=== PATIENT | female | born 1960 | race American Indian/Alaskan Native ===

== ENCOUNTER 2019-03-03 20:25 | Inpatient (IN) | payer MEDICAID ==
--- NOTE | 2019-03-03 20:37 | Emergency Department Report ---
Blank Doc - Documentation Documentation: 58-year-old female that presents with flank pain, pelvic pain, and dysuria. This initial assessment/diagnostic orders/clinical plan/treatment(s) is/are subject to change based on patient's health status, clinical progression and re- assessment by fellow clinical providers in the ED. Further treatment and workup at subsequent clinical providers discretion. Patient/guardians urged not to elope from the ED as their condition may be serious if not clinically assessed and managed. Initial orders include: 1- Patient sent to [facility] for further evaluation and treatment 2- UA 3- labs
[2019-03-03 21:21] LABS: Alanine Aminotransferase 91 units/L (7-56); Albumin 3.6 g/dL (3.9-5); BUN/Creatinine Ratio 34; Blood Urea Nitrogen 17 mg/dL (7-17); Calcium 9.6 mg/dL (8.4-10.2); Hemolysis Index 43
[2019-03-03 21:23] LABS: Basophils # (Auto) 0.1 K/mm3 (0.0-0.1); Basophils % (Auto) 1.1 % (0.0-1.8); Eosinophils # (Auto) 0.2 K/mm3 (0.0-0.4); Eosinophils % (Auto) 2.5 % (0.0-4.3); Hematocrit 37.2 % (30.3-42.9); Hemoglobin 11.8 gm/dl (10.1-14.3); Lymphocytes # (Auto) 1.9 K/mm3 (1.2-5.4); Mean Corpuscular HGB Conc 32 % (30-34); Mean Corpuscular Volume 84 fl (79-97); Monocytes # (Auto) 0.7 K/mm3 (0.0-0.8); Monocytes % (Auto) 7.6 % (0.0-7.3); Platelet Count 382 K/mm3 (140-440); Red Blood Count 4.42 M/mm3 (3.65-5.03); Red Cell Distribution Width 16.4 % (13.2-15.2)
[2019-03-03 21:24] LABS: Bacteria,Urine 1+ /HPF (Negative); Bilirubin,Urine NEG (Negative); Blood,Urine LG (Negative); Color,Urine Amber (Yellow)
[2019-03-03] MEDS ORDERED: ONDANSETRON 4 MG/2 ML INJ IV ONE (21:31)
[2019-03-03] MEDS ORDERED: MORPHINE 4 MG/1 ML INJ IV ONE (21:31)
[2019-03-03] MEDS ORDERED: SODIUM CHLORIDE 0.9% 1000 ML 1,000 ML IV ONE (21:31)
[2019-03-03 21:33] LABS: RBC,Urine > 182.0 /HPF (0.0-6.0); WBC,Urine > 182.0 /HPF (0.0-6.0)
[2019-03-03] MEDS ORDERED: cefTRIAXone/NS 1 GM/50 ML 1 GM/50 ML BAG IV ONE (21:45)
--- NOTE | 2019-03-03 22:10 | Emergency Department Report ---
ED General Adult HPI - General Chief complaint: Abdominal Pain Stated complaint: ABD/BACK PAIN/R SIDE CP Time Seen by Provider: 03/03/19 20:36 Source: patient Mode of arrival: Ambulatory Limitations: No Limitations - History of Present Illness Initial comments: Patient is a 58-year-old female who presents emergency room with complaints of lower abdominal pain and lower back pain that began earlier this week. Patient states that 3 weeks ago she had similar symptoms and was diagnosed with a UTI and took a week of antibiotics but does not know what she took. Patient states that her symptoms completely resolved but then returned again. She has asso ciated dysuria, chills, urinary frequency, urinary urgency, nausea. She denies any vomiting or diarrhea. She has not taken her temperature. She states she has a past medical history of cervical cancer and depression. She denies any allergies medications. - Related Data Previous Rx's Medication Instructions Recorded Last Taken Type Amoxicillin [Trimox CAP] 500 mg PO Q8H #30 capsule 02/27/14 Unknown Rx Naproxen [Naprosyn TAB] 500 mg PO BID PRN #30 tablet 09/05/15 Unknown Rx methOCARBAMOL [Robaxin TAB] 500 mg PO BID PRN #20 tab 09/05/15 Unknown Rx traMADoL [Ultram 50 MG tab] 50 mg PO BID PRN #14 tablet 12/23/15 Unknown Rx Allergies Allergy/AdvReac Type Severity Reaction Status Date / Time No Known Allergies Allergy Verified 02/27/14 15:35 ED Review of Systems ROS: Stated complaint: ABD/BACK PAIN/R SIDE CP Other details as noted in HPI Comment: All other systems reviewed and negative ED Past Medical Hx - Past Medical History Previous Medical History?: Yes Hx Hypertension: Yes Hx GERD: Yes Hx of Cancer: Yes (Cervical) - Surgical History Past Surgical History?: Yes Additional Surgical History: L. hand repair - Social History Smoking Status: Never Smoker Substance Use Type: None - Medications Home Medications: Home Medications Medication Instructions Recorded Confirmed Last Taken Type Amoxicillin [Trimox CAP] 500 mg PO Q8H #30 capsule 02/27/14 Unknown Rx Naproxen [Naprosyn TAB] 500 mg PO BID PRN #30 tablet 09/05/15 Unknown Rx methOCARBAMOL [Robaxin TAB] 500 mg PO BID PRN #20 tab 09/05/15 Unknown Rx traMADoL [Ultram 50 MG tab] 50 mg PO BID PRN #14 tablet 12/23/15 Unknown Rx ED Physical Exam - General Limitations: No Limitations General appearance: alert, in no apparent distress - Head Head exam: Present: atraumatic - Eye Eye exam: Present: scleral icterus - ENT ENT exam: Present: mucous membranes moist - Respiratory Respiratory exam: Present: normal lung sounds bilaterally. Absent: respiratory distress, wheezes, rales, rhonchi, stridor, chest wall tenderness, accessory muscle use, decreased breath sounds, prolonged expiratory - Cardiovascular Cardiovascular Exam: Present: normal rhythm, tachycardia, normal heart sounds. Absent: systolic murmur, diastolic murmur, rubs, gallop - GI/Abdominal GI/Abdominal exam: Present: soft, tenderness (generalized lower abdomen), normal bowel sounds. Absent: distended, guarding, rebound, rigid - Back Exam Back exam: Present: CVA tenderness (R) - Neurological Exam Neurological exam: Present: alert, oriented X3 - Psychiatric Psychiatric exam: Present: normal affect, normal mood - Skin Skin exam: Present: warm, dry, intact ED Course Vital Signs 03/03/19 03/03/19 03/03/19 20:31 20:40 21:24 Temperature 98.6 F 98.6 F Pulse Rate 113 H 113 H Respiratory 18 18 16 Rate Blood Pressure 127/87 127/87 O2 Sat by Pulse 99 97 Oximetry - Consultations Consultation #1: 03/03/19 11:[address] Choudhary, general surgery discussed pt and CT findings advised to consult GI 03/03/19 11:[address] Patel, GI discussed pt and CT findings and labs, advised to keep NPO, will evaluate pt in the morning for possible ERCP, no abx recommended at this time. 03/04/19 12:[address] Farley, hospitalist regarding pt and results, will admit pt to the hospital, will accept and resume care of patient ED Medical Decision Making - Lab Data Result diagrams: 03/03/19 20:54 03/03/19 20:54 - Radiology Data Radiology results: report reviewed CT abdomen pelvis w con INDICATION: lower abd pain, right flank pain. TECHNIQUE: All CT scans at this location are performed using the following dose modulation technique: Automated exposure control. CONTRAST: Omnipaque 300, 100 cc IV injection. COMPARISON: None available. CT ABDOMEN: Evaluation of the parenchymal organs demonstrates a low-density hepatic mass anterior to the portal bifurcation within the right lobe (series 2, image 38) measuring 2.5 cm. There is associated moderate biliary dilatation. A few small renal cysts appear benign. The remaining parenchymal organs are unremarkable. The gallbladder is contracted. The bowel is not dilated or thickened. Noninflamed diverticula are greatest at the sigmoid colon. Partially necrotic retroperitoneal adenopathy is present. A loan representative node at the left periaortic region at the level of the left renal hilum (series 2, image 67) measures 2.[address] PELVIS: Dilatation of the endometrial canal. An underlying heterogeneous mass in the region of the cervix (series 2, image 134) measures 5.7 cm. There is involvement of the superior aspect of the bladder and the left adnexa/ovary. The left ovary contains a cystic component and 1.5 cm soft tissue nodule. 2 soft tissue nodules are seen in the midline anteriorly at the level of the upper pelvis (series 2, image 1:15). The largest measures 1.6 cm. IMPRESSION: 1. CHECK VIEWER malignancy is likely cervical in origin with involvement of the left ovary. Metastatic disease is seen to the anterior pelvis and retroperitoneal nodes. 2. 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 Signer Name: Dirk Duarte MD Signed: 03/03/2019 10:51 PM Workstation Name: [id number] Transcribed By: ES Dictated By: Dirk Duarte MD Electronically Authenticated By: Dirk Duarte MD Signed Date/Time: 03/03/192250 DD/ 40 - Medical Decision Making Patient is a 58-year-old female who presents emergency room with complaints of lower abdominal pain and lower back pain that began earlier this week. Patient states that 3 weeks ago she had similar symptoms and was diagnosed with a UTI and took a week of antibiotics but does not know what she took. Patient states that her symptoms completely resolved but then returned again. She has associated dysuria, chills, urinary frequency, urinary urgency, nausea. She denies any vomiting or diarrhea. She has not taken her temperature. She states she has a past medical history of cervical cancer and depression. She denies any allergies medications. pt states that she was diagnosed with cervical cancer in 2017 but states "she did not have surgery or undergo chemo/radiation and that it went away and she was being observed." vitals with tachycardia, otherwise normal. CBC is stable, no leukocytosis. CMP with elevated liver enzymes. on exam: scleral icterus, generalized lower abd TTP. UA shows many WBCs, many RBCs, moderate leukocyte esterase. pt given 1g ceftriaxone for UTI. CT abd pelvis: 1. CHECK VIEWER malignancy is likely cervical in origin with involvement of the left ovary. Metastatic disease is seen to the anterior pelvis and retroperitoneal nodes. 2. 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 spoke with Dr. Patel, GI discussed pt and CT findings and labs, advised to keep NPO, will evaluate pt in the morning for possible ERCP, no abx recommended at this time. Spoke with Dr. Farley, hospitalist regarding pt and results, will admit pt to the hospital, will accept and resume care of patient. pt made NPO, pt admitted to the hospital. - Differential Diagnosis UTI, pyelonephritis, colitis, cancer, appendicitis Critical care attestation.: If time is entered above; I have spent that time in minutes in the direct care of this critically ill patient, excluding procedure time. ED Disposition Clinical Impression: Metastatic disease, Bile duct obstruction, Cholangiocarcinoma, Elevated alkaline phosphatase level, Elevated LFTs Cervical malignancy Qualifiers: Malignant neoplasm of cervix location: unspecified location Qualified Code(s): C53.9 - Malignant neoplasm of cervix uteri, unspecified UTI (urinary tract infection) Qualifiers: Urinary tract infection type: acute cystitis Hematuria presence: with hematuria Qualified Code(s): N30.01 - Acute cystitis with hematuria Disposition: OP ADMIT IP TO THIS HOSP Is pt being admited?: Yes Does the pt Need Aspirin: No Condition: Stable
[2019-03-03 22:19] LABS: Hepatitis B Surface Antigen Non-Reactive (Negative); Hepatitis C Virus Antibody Non-Reactive (NonReactive)
--- NOTE | 2019-03-03 22:55 | Cat Scan Report ---
CT abdomen pelvis w con INDICATION: lower abd pain, right flank pain. TECHNIQUE: All CT scans at this location are performed using the following dose modulation technique: Automated exposure control. CONTRAST: Omnipaque 300, 100 cc IV injection. COMPARISON: None available. CT ABDOMEN: Evaluation of the parenchymal organs demonstrates a low-density hepatic mass anterior to the portal bifurcation within the right lobe (series 2, image 38) measuring 2.5 cm. There is associat ed moderate biliary dilatation. A few small renal cysts appear benign. The remaining parenchymal orga ns are unremarkable. The gallbladder is contracted. The bowel is not dilated or thickened. Noninflamed diverticula are greatest at the sigmoid colon. Par tially necrotic retroperitoneal adenopathy is present. A statement services representative node at the left periaortic r egion at the level of the left renal hilum (series 2, image 67) measures 2.[address] PELVIS: Dilatation of the endometrial canal. An underlying heterogeneous mass in the region of the cervix (series 2, image 134) measures 5.7 cm. There is involvement of the superior aspect of the sabrina dder and the left adnexa/ovary. The left ovary contains a cystic component and 1.5 cm soft tissue nod ule. 2 soft tissue nodules are seen in the midline anteriorly at the level of the upper pelvis (serie s 2, image 1:15). The largest measures 1.6 cm. IMPRESSION: 1. TEA TREE F[employer]ER malignancy is likely cervical in origin with involvement of the left ovary. Metastatic disease is seen to the anterior pelvis and retroperitoneal nodes. 2. 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 Signer Name: Dirk Duarte MD Signed: 03/03/2019 10:51 PM Workstation Name: [id number]
[2019-03-03] MEDS ORDERED: HYDROmorphone 1 MG/1 ML INJ IV ONE (23:12)
[2019-03-04] MEDS ORDERED: ONDANSETRON 4 MG/2 ML INJ IV PRN (00:59)
--- NOTE | 2019-03-04 02:12 | History and Physical Report ---
History of Present Illness Date of examination: 03/04/19 Date of admission: 03/04/19 00:59 Chief complaint: Back pain Lower abdominal pain History of present illness: 58-year-old -[place] female presenting to the emergency room today complaining of lower abdominal pain and back pain over the past one week. She was diagnosed with a urinary tract infection about 3 weeks ago and she indicates that she took antibiotics she indicates that she has been having dysuria and urinary frequency lately. She denies any fever but she has been having some chills and also had some nausea. She has known history of cervical cancer diagnosed in 2017 and has had radiation chemotherapy in the past. He has also noticed some yellowness of her eyes lately. She has also been more constipated lately. Work-up in the emergency room today including CT of the abdomen reveals 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. Is also gynecological malignancy which is likely cervical in origin with involvement of the left ovary, there is also metastatic disease seen to the anterior pelvis and retroperitoneal nodes. Gastroenterologists has been consulted regarding the abnormal liver function test and biliary ductal obstruction. Patient will be kept n.p.o. for further evaluation in the a.m. She is also started on empiric IV antibiotics for UTI Past History Past Medical History: GERD, hypertension Past Surgical History: Other (Left hand surgery) Social history: smoking (Smokes tobacco occasionally) Family history: cancer, diabetes Medications and Allergies Allergies Allergy/AdvReac Type Severity Reaction Status Date / Time No Known Allergies Allergy Verified 02/27/14 15:35 Home Medications Medication Instructions Recorded Confirmed Last Taken Type Amoxicillin [Trimox CAP] 500 mg PO Q8H #30 capsule 02/27/14 Unknown Rx Naproxen [Naprosyn TAB] 500 mg PO BID PRN #30 tablet 09/05/15 Unknown Rx methOCARBAMOL [Robaxin TAB] 500 mg PO BID PRN #20 tab 09/05/15 Unknown Rx traMADoL [Ultram 50 MG tab] 50 mg PO BID PRN #14 tablet 12/23/15 Unknown Rx Active Meds: Active Medications Acetaminophen (Tylenol) 650 mg PO Q4H PRN PRN Reason: Pain MILD(1-3)/Fever >100.5/MAST Sodium Chloride (Nacl 0.9% 1000 Ml) 1,000 mls @ 125 mls/hr IV DIRECT MATHEUS Ceftriaxone Sodium (Rocephin/Ns 1 Gm/50 Ml) 1 gm in 50 mls @ 100 mls/hr IV Q24HR MATHEUS; Protocol Morphine Sulfate (Morphine) 2 mg IV Q4H PRN PRN Reason: Pain, Moderate (4-6) Ondansetron HCl (Zofran) 4 mg IV Q8H PRN PRN Reason: Nausea And Vomiting Sodium Chloride (Sodium Chloride Flush Syringe 10 Ml) 10 ml IV BID MATHEUS Sodium Chloride (Sodium Chloride Flush Syringe 10 Ml) 10 ml IV PRN PRN PRN Reason: LINE FLUSH Review of Systems Gastrointestinal: abdominal pain Musculoskeletal: low back pain Exam - Constitutional Vitals: Temp Pulse Resp BP Pulse Ox 98.0 F 88 18 120/75 100 03/04/19 02:03 03/04/19 02:03 03/04/19 02:03 03/04/19 02:03 03/04/19 02:03 General appearance: Present: no acute distress, mild distress - EENT Eyes: Present: PERRL, EOM intact ENT: hearing intact, clear oral mucosa, dentition normal - Neck Neck: Present: supple, normal ROM - Respiratory Respiratory effort: normal Respiratory: bilateral: CTA - Cardiovascular Rhythm: regular Heart Sounds: Present: S1 & S2, gallop - Extremities Extremities: no ischemia, pulses intact, pulses symmetrical, No edema, Full ROM Peripheral Pulses: within normal limits - Abdominal General gastrointestinal: Present: soft, tender (Mild tenderness in the suprapubic region), distended Localized gastrointestinal: tender: suprapubic - Integumentary Integumentary: Present: clear, warm, dry, jaundice - Musculoskeletal Musculoskeletal: strength equal bilaterally - Psychiatric Psychiatric: appropriate mood/affect, intact judgment & insight, cooperative - Neurologic Neurologic: CNII-XII intact, moves all extremities Results - Labs CBC & Chem 7: 03/03/19 20:54 03/03/19 20:54 Labs: Abnormal lab results 03/03/19 03/03/19 03/03/19 Range/Units 20:54 20:54 20:54 MCH 27 L (28-32) pg RDW 16.4 H (13.2-15.2) % [place] % (Auto) 7.6 H (0.0-7.3) % Sodium 135 L (137-145) mmol/L Carbon Dioxide 20 L (22-30) mmol/L Creatinine 0.5 L (0.7-1.2) mg/dL Glucose 171 H (65-100) mg/dL Total Bilirubin 4.70 H (0.1-1.2) mg/dL AST 75 H (5-40) units/L ALT 91 H (7-56) units/L Alkaline Phosphatase 1034 H (35-129) units/L Total Protein 8.4 H (6.3-8.2) g/dL Albumin 3.6 L (3.9-5) g/dL Urine WBC (Auto) > 182.0 H (0.0-6.0) /HPF Assessment and Plan - Patient Problems (1) Bile duct obstruction Current Visit: Yes Status: Acute Plan to address problem: Secondary to metastatic disease. We await further evaluation and recommendation from [facility]. (2) Cholangiocarcinoma Current Visit: Yes Status: Acute Plan to address problem: Patient also has ductal obstruction. Will await further evaluation by [facility]. (3) Elevated LFTs Current Visit: Yes Status: Acute Plan to address problem: We will monitor LFTs. (4) Cervical malignancy Current Visit: Yes Status: Acute Qualifiers: Malignant neoplasm of cervix location: unspecified location Qualified Code(s): C53.9 - Malignant neoplasm of cervix uteri, unspecified Plan to address problem: Patient has had chemotherapy and radiation in the past. Follows up with her private physician. (5) UTI (urinary tract infection) Current Visit: Yes Status: Acute Qualifiers: Urinary tract infection type: acute cystitis Hematuria presence: with hematuria Qualified Code(s): N30.01 - Acute cystitis with hematuria Plan to address problem: She is placed on empiric IV antibiotics. (6) DVT prophylaxis Current Visit: Yes Status: Acute Plan to address problem: Patient meanwhile placed on sequential compression device as patient may be may be going for some surgical procedures this a.m. (7) Full code status Current Visit: Yes Status: Acute
[2019-03-04] MEDS ORDERED: HYDROmorphone 1 MG/1 ML INJ IV ONE (03:30)
[2019-03-04] MEDS: SODIUM CHLORIDE 0.9% 1000 ML 1,000 ML IV SCH ×2 (03:33→11:21)
[2019-03-04] MEDS: MORPHINE 2 MG/1 ML INJ IV PRN ×3 (08:50→18:56)
[2019-03-04] MEDS: cefTRIAXone/NS 1 GM/50 ML 1 GM/50 ML BAG IV SCH (11:11)
--- NOTE | 2019-03-04 12:09 | Gastroenterology Consultation ---
<VALERIA SHEFFIELD - Last Filed: 03/04/19 12:22> History of Present Illness - Reason for Consult Consult date: 03/04/19 cholangiocarcinoma Requesting physician: KATIUSKA GILL - History of Present Illness Patient is a 58 y/o female with PMH of HTN, GERD, and cervical cancer (dx 2017; s/p chemo/radiation) who presented to ED with c/o lower abdominal pain, back pain, and dysuria. 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 This morning patient was resting in bed w/o acute distress. Reports continued lower abdominal pain and admits to jaundice x ~2 days. Unclear if there has been wt loss. Denies CP, SOB, N/V, or signs of bleeding. No hx of ETOH abuse, IV drug use, or liver disease. Past History Past Medical History: GERD, hypertension, other (cervical cancer) Past Surgical History: Other (Left hand surgery) Social history: smoking (Smokes tobacco occasionally) Family history: cancer, diabetes Medications and Allergies Allergies Allergy/AdvReac Type Severity Reaction Status Date / Time No Known Allergies Allergy Verified 02/27/14 15:35 Home Medications Medication Instructions Recorded Confirmed Last Taken Type methOCARBAMOL [Robaxin TAB] 500 mg PO BID PRN #20 tab 09/05/15 03/04/19 Unknown Rx Percocet 10/325 mg 10 mg PO Q12HR 03/04/19 03/04/19 1 Day Ago History ~03/03/19 10/325 Active Meds: Active Medications Acetaminophen (Tylenol) 650 mg PO Q4H PRN PRN Reason: Pain MILD(1-3)/Fever >100.5/MAST Sodium Chloride (Nacl 0.9% 1000 Ml) 1,000 mls @ 125 mls/hr IV DIRECT MATHEUS Last Admin: 03/04/19 11:21 Dose: 125 mls/hr Documented by: Ceftriaxone Sodium (Rocephin/Ns 1 Gm/50 Ml) 1 gm in 50 mls @ 100 mls/hr IV Q24HR [facility]; Protocol Last Admin: 03/04/19 11:11 Dose: 100 mls/hr Documented by: Morphine Sulfate (Morphine) 2 mg IV Q4H PRN PRN Reason: Pain, Moderate (4-6) Last Admin: 03/04/19 08:50 Dose: 2 mg Documented by: Ondansetron HCl (Zofran) 4 mg IV Q8H PRN PRN Reason: Nausea And Vomiting Sodium Chloride (Sodium Chloride Flush Syringe 10 Ml) 10 ml IV BID [facility]US Last Admin: 03/04/19 11:11 Dose: Not Given Documented by: Sodium Chloride (Sodium Chloride Flush Syringe 10 Ml) 10 ml IV PRN PRN PRN Reason: LINE FLUSH medications reviewed/updated as required Review of Systems - Review of Systems All systems: negative Gastrointestinal: abdominal pain, jaundice Exam - Constitutional Vital Signs: Temp Pulse Resp BP Pulse Ox 99.3 F 95 H 18 115/71 97 03/04/19 12:00 03/04/19 12:00 03/04/19 12:00 03/04/19 12:00 03/04/19 12:00 General appearance: no acute distress - EENT Eyes: PERRL, EOM intact, scleral icterus - Respiratory Respiratory effort: normal - Cardiovascular Rhythm: regular - Gastrointestinal General gastrointestinal: Present: soft, tender (slight TTP in lower abdomen), non-distended, hypoactive bowel sounds - Integumentary Integumentary: Present: warm - Neurologic Neurological: alert and oriented x3 - Labs CBC & Chem 7: 03/03/19 20:54 03/03/19 20:54 Lab Results: Laboratory Results - last 24 hr 03/03/19 03/03/19 03/03/19 20:54 20:54 20:54 WBC 9.4 RBC 4.42 Hgb 11.8 Hct 37.2 MCV 84 MCH 27 L MCHC 32 RDW 16.4 H Plt Count 382 Lymph % (Auto) 20.0 [place] % (Auto) 7.6 H Eos % (Auto) 2.5 Baso % (Auto) 1.1 Lymph # 1.9 [place] # 0.7 Eos # 0.2 Baso # 0.1 Seg Neutrophils % 68.8 Seg Neutrophils # 6.5 Sodium 135 L Potassium 4.3 Chloride 99.9 Carbon Dioxide 20 L Anion Gap 19 BUN 17 Creatinine 0.5 L Estimated GFR > 60 BUN/Creatinine Ratio 34 Glucose 171 H Calcium 9.6 Total Bilirubin 4.70 H AST 75 H ALT 91 H Alkaline Phosphatase 1034 H Total Protein 8.4 H Albumin 3.6 L Albumin/Globulin Ratio 0.8 Urine Color [place] Urine Turbidity Cloudy Urine pH 5.0 Ur Specific [place] 1.015 Urine Protein 30 mg/dl Urine Glucose (UA) Neg Urine Ketones Neg Urine Blood Lg Urine Nitrite Neg Urine Bilirubin Neg Urine Urobilinogen 4.0 Ur Leukocyte Esterase Mod Urine WBC (Auto) > 182.0 H Urine RBC (Auto) > 182.0 U Epithel Cells (Auto) 3.0 Urine Bacteria (Auto) 1+ Hepatitis A IgM Ab Hep Bs Antigen Hep B Core IgM Ab Hepatitis C Antibody 03/03/19 21:34 WBC RBC Hgb Hct MCV MCH MCHC RDW Plt Count Lymph % (Auto) [place] % (Auto) Eos % (Auto) Baso % (Auto) Lymph # [place] # Eos # Baso # Seg Neutrophils % Seg Neutrophils # Sodium Potassium Chloride Carbon Dioxide Anion Gap BUN Creatinine Estimated GFR BUN/Creatinine Ratio Glucose Calcium Total Bilirubin AST ALT Alkaline Phosphatase Total Protein Albumin Albumin/Globulin Ratio Urine Color Urine Turbidity Urine pH Ur Specific [place] Urine Protein Urine Glucose (UA) Urine Ketones Urine Blood Urine Nitrite Urine Bilirubin Urine Urobilinogen Ur Leukocyte Esterase Urine WBC (Auto) Urine RBC (Auto) U Epithel Cells (Auto) Urine Bacteria (Auto) Hepatitis A IgM Ab Non-reactive Hep Bs Antigen Non-reactive Hep B Core IgM Ab Non-reactive Hepatitis C Antibody Non-reactive Assessment and Plan 1.elevated LFTs 2.abnormal CT (cholangiocarcinoma?) 4.cervical malignancy 5.UTI -temp 98 -WBC WNL -LFTs- T.elisa 4.70, AST 75, ALT 91, alk phos 1034 -abd CT showed [employer] malignancy likely cervical in origin with metastatic disease, along with 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 -will order tumor markers and MRI for further evaluation -consider ERCP (stent placement) based on above -okay for diet as tolerated today after MRI then NPO after MN -continue antibiotics -oncology consult -continue to trend labs (INR in am) and supportive care -further recommendations to follow <MADELIN LOVETT - Last Filed: 03/04/19 19:52> Medications and Allergies Active Meds: Active Medications Acetaminophen (Tylenol) 650 mg PO Q4H PRN PRN Reason: Pain MILD(1-3)/Fever >100.5/MAST Sodium Chloride (Nacl 0.9% 1000 Ml) 1,000 mls @ 125 mls/hr IV DIRECT MATHEUS Last Admin: 03/04/19 11:21 Dose: 125 mls/hr Documented by: Ceftriaxone Sodium (Rocephin/Ns 1 Gm/50 Ml) 1 gm in 50 mls @ 100 mls/hr IV Q2 4HR [facility]; Protocol Last Admin: 03/04/19 11:11 Dose: 100 mls/hr Documented by: Morphine Sulfate (Morphine) 2 mg IV Q4H PRN PRN Reason: Pain, Moderate (4-6) Last Admin: 03/04/19 18:56 Dose: 2 mg Documented by: Ondansetron HCl (Zofran) 4 mg IV Q8H PRN PRN Reason: Nausea And Vomiting Sodium Chloride (Sodium Chloride Flush Syringe 10 Ml) 10 ml IV BID [facility] Last Admin: 03/04/19 11:11 Dose: Not Given Documented by: Sodium Chloride (Sodium Chloride Flush Syringe 10 Ml) 10 ml IV PRN PRN PRN Reason: LINE FLUSH Exam - Constitutional Vital Signs: Temp Pulse Resp BP Pulse Ox 99.3 F 95 H 18 115/71 97 03/04/19 12:00 03/04/19 12:00 03/04/19 12:00 03/04/19 12:00 03/04/19 12:00 - Labs CBC & Chem 7: 03/03/19 20:54 03/03/19 20:54 Lab Results: Laboratory Results - last 24 hr 03/03/19 03/03/19 03/03/19 20:54 20:54 20:54 WBC 9.4 RBC 4.42 Hgb 11.8 Hct 37.2 MCV 84 MCH 27 L MCHC 32 RDW 16.4 H Plt Count 382 Lymph % (Auto) 20.0 [place] % (Auto) 7.6 H Eos % (Auto) 2.5 Baso % (Auto) 1.1 Lymph # 1.9 [place] # 0.7 Eos # 0.2 Baso # 0.1 Seg Neutrophils % 68.8 Seg Neutrophils # 6.5 Sodium 135 L Potassium 4.3 Chloride 99.9 Carbon Dioxide 20 L Anion Gap 19 BUN 17 Creatinine 0.5 L Estimated GFR > 60 BUN/Creatinine Ratio 34 Glucose 171 H Calcium 9.6 Total Bilirubin 4.70 H AST 75 H ALT 91 H Alkaline Phosphatase 1034 H Total Protein 8.4 H Albumin 3.6 L Albumin/Globulin Ratio 0.8 Urine Color [place] Urine Turbidity Cloudy Urine pH 5.0 Ur Specific [place] 1.015 Urine Protein 30 mg/dl Urine Glucose (UA) Neg Urine Ketones Neg Urine Blood Lg Urine Nitrite Neg Urine Bilirubin Neg Urine Urobilinogen 4.0 Ur Leukocyte Esterase Mod Urine WBC (Auto) > 182.0 H Urine RBC (Auto) > 182.0 U Epithel Cells (Auto) 3.0 Urine Bacteria (Auto) 1+ Hepatitis A IgM Ab Hep Bs Antigen Hep B Core IgM Ab Hepatitis C Antibody 03/03/19 21:34 WBC RBC Hgb Hct MCV MCH MCHC RDW Plt Count Lymph % (Auto) [place] % (Auto) Eos % (Auto) Baso % (Auto) Lymph # [place] # Eos # Baso # Seg Neutrophils % Seg Neutrophils # Sodium Potassium Chloride Carbon Dioxide Anion Gap BUN Creatinine Estimated GFR BUN/Creatinine Ratio Glucose Calcium Total Bilirubin AST ALT Alkaline Phosphatase Total Protein Albumin Albumin/Globulin Ratio Urine Color Urine Turbidity Urine pH Ur Specific [place] Urine Protein Urine Glucose (UA) Urine Ketones Urine Blood Urine Nitrite Urine Bilirubin Urine Urobilinogen Ur Leukocyte Esterase Urine WBC (Auto) Urine RBC (Auto) U Epithel Cells (Auto) Urine Bacteria (Auto) Hepatitis A IgM Ab Non-reactive Hep Bs Antigen Non-reactive Hep B Core IgM Ab Non-reactive Hepatitis C Antibody Non-reactive Assessment and Plan Patient seen and examined. Agree with note above. Obstructive jaundice from suspected neoplasm (cholangicarinoma vs metastatic disease). No signs of cholangitis. Recommend oncology consult. Will likely need ercp with stent placement, will f/u regarding timing for procedure
--- NOTE | 2019-03-04 16:15 | Consultation ---
History of Present Illness Consult date: 03/04/19 Reason for consult: other (Findings on CT scan. Patient is a 58 y/o female with PMH of HTN, GERD, and cervical cancer (dx 2017; s/p chemo/radiation) who presented to ED with c/o lower abdominal pain, back pain, and dysuria. 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 This morning patient was resting in bed w/o acute distress. Reports continued lower abdominal pain and admits to jaundice x ~2 days. Unclear if there has been wt loss. Denies CP, SOB, N/V, or signs of bleeding. No hx of ETOH abuse, IV drug use, or liver disease. 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 Medications and Allergies Allergies Allergy/AdvReac Type Severity Reaction Status Date / Time No Known Allergies Allergy Verified 02/27/14 15:35 Home Medications Medication Instructions Recorded Confirmed Last Taken Type methOCARBAMOL [Robaxin TAB] 500 mg PO BID PRN #20 tab 09/05/15 03/04/19 Unknown Rx Percocet 10/325 mg 10 mg PO Q12HR 03/04/19 03/04/19 1 Day Ago History ~03/03/19 10/325 Active Meds: Active Medications Acetaminophen (Tylenol) 650 mg PO Q4H PRN PRN Reason: Pain MILD(1-3)/Fever >100.5/MAST Sodium Chloride (Nacl 0.9% 1000 Ml) 1,000 mls @ 125 mls/hr IV DIRECT MATHEUS Last Admin: 03/04/19 11:21 Dose: 125 mls/hr Documented by: Ceftriaxone Sodium (Rocephin/Ns 1 Gm/50 Ml) 1 gm in 50 mls @ 100 mls/hr IV Q24HR [facility]; Protocol Last Admin: 03/04/19 11:11 Dose: 100 mls/hr Documented by: Morphine Sulfate (Morphine) 2 mg IV Q4H PRN PRN Reason: Pain, Moderate (4-6) Last Admin: 03/04/19 15:04 Dose: 2 mg Documented by: Ondansetron HCl (Zofran) 4 mg IV Q8H PRN PRN Reason: Nausea And Vomiting Sodium Chloride (Sodium Chloride Flush Syringe 10 Ml) 10 ml IV BID [facility]HEUS Last Admin: 03/04/19 11:11 Dose: Not Given Documented by: Sodium Chloride (Sodium Chloride Flush Syringe 10 Ml) 10 ml IV PRN PRN PRN Reason: LINE FLUSH Review of Systems Constitutional: other (patient was asking for food.) Respiratory: no cough, no shortness of breath, no dyspnea on exertion Genitourinary: dysuria, no vaginal bleeding, no vaginal discharge, no leakage of fluid, no pelvic pain - Vital Signs Vital signs: Vital Signs Temp Pulse Resp BP Pulse Ox 98.6 F 113 H 18 127/87 99 03/03/19 20:31 03/03/19 20:31 03/03/19 20:31 03/03/19 20:31 03/03/19 20:31 Temp Pulse Resp BP Pulse Ox 99.3 F 95 H 18 115/71 97 03/04/19 12:00 03/04/19 12:00 03/04/19 12:00 03/04/19 12:00 03/04/19 12:00 - Physical Exam Breasts: Positive: deferred Lungs: Positive: Normal air movement Abdomen: Positive: soft Genitourinary (Female): Positive: other (Patient denied any lower genital problems. Exam was deferred.) Results Result Diagrams: 03/03/19 20:54 03/03/19 20:54 Abnormal lab results 03/03/19 03/03/19 03/03/19 Range/Units 20:54 20:54 20:54 MCH 27 L (28-32) pg RDW 16.4 H (13.2-15.2) % [place] % (Auto) 7.6 H (0.0-7.3) % Sodium 135 L (137-145) mmol/L Carbon Dioxide 20 L (22-30) mmol/L Creatinine 0.5 L (0.7-1.2) mg/dL Glucose 171 H (65-100) mg/dL Total Bilirubin 4.70 H (0.1-1.2) mg/dL AST 75 H (5-40) units/L ALT 91 H (7-56) units/L Alkaline Phosphatase 1034 H (35-129) units/L Total Protein 8.4 H (6.3-8.2) g/dL Albumin 3.6 L (3.9-5) g/dL Urine WBC (Auto) > 182.0 H (0.0-6.0) /HPF All other labs normal. CT scan - abdomen: report reviewed CT scan - pelvis: report reviewed (Reviewed) Assessment and Plan - Patient Problems (1) Cervical malignancy Current Visit: Yes Status: Acute Qualifiers: Malignant neoplasm of cervix location: unspecified location Qualified Code(s): C53.9 - Malignant neoplasm of cervix uteri, unspecified Plan to address problem: Patient was comfortable and denied any lower genital complaints today. 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 Garcia, at [facility]. My recommendation is that patient be seen by an [employer] oncologist as soon as possible to lend management while patient is here at [facility].
--- NOTE | 2019-03-04 17:03 | Magnetic Resonance Report ---
MR abdomen MRCP INDICATION: Elevated liver function testing. Suspected cholangiocarcinoma. TECHNIQUE: Multiplanar, multisequence MR images were obtained through the abdomen without contrast. COMPARISON: CT abdomen and pelvis with contrast from 03/03/2019. FINDINGS: Lower chest: No significant abnormality. Liver: The previously suspected clinical carcinoma is better visualized on the prior CT without overa ll significant change in size. No other significant abnormality of the liver is noted. Biliary: There is moderate intrahepatic biliary ductal dilatation with obstruction of the proximal co mmon hepatic duct by the liver mass. The common bile duct is normal in caliber. No stone is clearly s een along the CBD. Pancreas: No significant abnormality. Spleen: No significant abnormality. Adrenals: No significant abnormality. Kidneys: Bilateral renal cysts are unchanged. No additional significant abnormality is seen. GI tract: The stomach and visualized portions of the small bowel and colon are unremarkable. Peritoneum: No free fluid or fluid collection is seen. Lymph nodes: Periaortic adenopathy is unchanged. No additional significant adenopathy is seen. Vasculature: No significant abnormality. Bones: No significant abnormality. Additional findings: None. IMPRESSION: 1. Stable biliary obstruction secondary to suspected cholangiocarcinoma. 2. Stable retroperitoneal lymphadenopathy is consistent with metastatic disease. Signer Name: Carlos Osborne MD Signed: 03/04/2019 4:58 PM Workstation Name: [id number]
--- NOTE | 2019-03-04 17:18 | Event Note ---
Date: 03/04/19 Admitted for Bile duct obstruction and cholangiocarcinoma patient evaluated Stable Consults in place
[2019-03-05] MEDS: SODIUM CHLORIDE 0.9% 1000 ML 1,000 ML IV SCH ×2 (00:35→09:33)
[2019-03-05] MEDS: MORPHINE 2 MG/1 ML INJ IV PRN ×5 (00:40→19:51)
[2019-03-05 04:37] LABS: Basophils # (Auto) 0.1 K/mm3 (0.0-0.1); Basophils % (Auto) 0.6 % (0.0-1.8); Eosinophils # (Auto) 0.1 K/mm3 (0.0-0.4); Eosinophils % (Auto) 1.5 % (0.0-4.3); Hematocrit 31.3 % (30.3-42.9); Hemoglobin 10.5 gm/dl (10.1-14.3); Lymphocytes # (Auto) 1.4 K/mm3 (1.2-5.4); Lymphocytes % (Auto) 16.5 % (13.4-35.0); Mean Corpuscular HGB Conc 34 % (30-34); Mean Corpuscular Volume 83 fl (79-97); Monocytes # (Auto) 0.7 K/mm3 (0.0-0.8); Monocytes % (Auto) 7.7 % (0.0-7.3); Platelet Count 307 K/mm3 (140-440); Red Blood Count 3.78 M/mm3 (3.65-5.03); Red Cell Distribution Width 16.1 % (13.2-15.2)
[2019-03-05 04:52] LABS: BUN/Creatinine Ratio 14; Blood Urea Nitrogen 7 mg/dL (7-17); Hemolysis Index 0
[2019-03-05 04:55] LABS: Albumin 3.3 g/dL (3.9-5); Bilirubin,Direct 5.3 mg/dL (0-0.2)
[2019-03-05 05:12] LABS: INR 1.05 (0.87-1.13)
[2019-03-05 05:13] LABS: Partial Thromboplastin Time 34.2 Sec. (24.2-36.6)
[2019-03-05] MEDS: cefTRIAXone/NS 1 GM/50 ML 1 GM/50 ML BAG IV SCH (09:18)
--- NOTE | 2019-03-05 10:53 | Gastroenterology Progress Note ---
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 Objective - Constitutional Vitals: Temp Pulse Resp BP Pulse Ox 99.0 F 97 H 20 116/62 97 03/05/19 04:54 03/04/19 21:29 03/05/19 04:54 03/05/19 04:54 03/04/19 21:29 General appearance: no acute distress - EENT Eyes: PERRL, EOM intact, scleral icterus ENT: hearing intact - Respiratory Respiratory effort: normal - Cardiovascular Rhythm: regular - Gastrointestinal General gastrointestinal: Present: soft, tender, non-distended, normal bowel sounds - Neurologic Neurological: alert and oriented x3 - Labs CBC & Chem 7: 03/05/19 04:06 03/05/19 04:06 Labs: Laboratory Results - last 24 hr 03/05/19 03/05/19 03/05/19 04:06 04:06 04:06 WBC 8.8 RBC 3.78 Hgb 10.5 Hct 31.3 MCV 83 MCH 28 MCHC 34 RDW 16.1 H Plt Count 307 Lymph % (Auto) 16.5 [place] % (Auto) 7.7 H Eos % (Auto) 1.5 Baso % (Auto) 0.6 Lymph # 1.4 [place] # 0.7 Eos # 0.1 Baso # 0.1 Seg Neutrophils % 73.7 H Seg Neutrophils # 6.5 PT 13.6 INR 1.05 APTT 34.2 Sodium 138 Potassium 3.7 Chloride 102.4 Carbon Dioxide 24 Anion Gap 15 BUN 7 Creatinine 0.5 L Estimated GFR > 60 BUN/Creatinine Ratio 14 Glucose 108 H Calcium 9.0 Total Bilirubin Direct Bilirubin Indirect Bilirubin AST ALT Alkaline Phosphatase Total Protein Albumin Albumin/Globulin Ratio 03/05/19 04:16 WBC RBC Hgb Hct MCV MCH MCHC RDW Plt Count Lymph % (Auto) [place] % (Auto) Eos % (Auto) Baso % (Auto) Lymph # [place] # Eos # Baso # Seg Neutrophils % Seg Neutrophils # PT INR APTT Sodium Potassium Chloride Carbon Dioxide Anion Gap BUN Creatinine Estimated GFR BUN/Creatinine Ratio Glucose Calcium Total Bilirubin 6.10 H Direct Bilirubin 5.3 H Indirect Bilirubin 0.8 AST 48 H ALT 64 H Alkaline Phosphatase 793 H Total Protein 6.9 Albumin 3.3 L Albumin/Globulin Ratio 0.9
[2019-03-05] MEDS ORDERED: fentaNYL 100 MCG/2 ML INJ ONE (16:52)
[2019-03-05] MEDS ORDERED: PROPOFOL 200 MG/20 ML VIAL IV ONE ×2 (16:53→17:30)
[2019-03-05] MEDS ORDERED: KETAMINE/STERILE WATER 50 MG/ML SYRINGE ONE (16:56)
[2019-03-05] MEDS ORDERED: LIDOCAINE MPF (2%) 20 MG/1 ML VIAL 5 ML ONE (17:00)
--- NOTE | 2019-03-05 17:04 | Progress Note ---
Assessment and Plan (1) Bile duct obstruction Current Visit: Yes Status: Acute Plan to address problem: Secondary to metastatic disease. We await further evaluation and recommendation from oral and maxillofacial pathologist. (2) Cholangiocarcinoma Current Visit: Yes Status: Acute Plan to address problem: Patient also has ductal obstruction. Will await further evaluation by oral and maxillofacial pathologist. (3) Elevated LFTs Current Visit: Yes Status: Acute Plan to address problem: We will monitor LFTs. (4) Cervical malignancy Current Visit: Yes Status: Acute Qualifiers: Malignant neoplasm of cervix location: unspecified location Qualified Code(s): C53.9 - Malignant neoplasm of cervix uteri, unspecified Plan to address problem: Patient has had chemotherapy and radiation in the past. Follows up with her private physician. (5) UTI (urinary tract infection) Current Visit: Yes Status: Acute Qualifiers: Urinary tract infection type: acute cystitis Hematuria presence: with hematuria Qualified Code(s): N30.01 - Acute cystitis with hematuria Plan to address problem: She is placed on empiric IV antibiotics. (6)Sirs with organ Dysfunction IV antibiotics.gor now UTI high wbc and Elevated LFT's (7) DVT prophylaxis Current Visit: Yes Status: Acute Plan to address problem: Patient meanwhile placed on sequential compression device as patient may be may be going for some surgical procedures this a.m. (8) Full code status Current Visit: Yes Status: Acute Subjective Date of service: 03/05/19 Principal diagnosis: cholangiocarcinoma Interval history: 58-year-old -[place] female presenting to the emergency room today complaining of lower abdominal pain and back pain over the past one week. She was diagnosed with a urinary tract infection about 3 weeks ago and she indicates that she took antibiotics she indicates that she has been having dysuria and urinary frequency lately. She denies any fever but she has been having some chills and also had some nausea. She has known history of cervical cancer diagnosed in 2017 and has had radiation chemotherapy in the past. He has also noticed some yellowness of her eyes lately. She has also been more constipated lately. Work-up in the emergency room today including CT of the abdomen reveals s uspected cholangiocarcinoma with ductal obstruction. Is also gynecological malignancy which is likely cervical in origin with involvement of the left ovary, there is also metastatic disease seen to the anterior pelvis and retroperitoneal nodes. Gastroenterologists has been consulted regarding the abnormal liver function test and biliary ductal obstruction. Patient will be kept n.p.o. for further evaluation in the a.m. She is also started on empiric IV antibiotics for UTI Objective - Constitutional Vitals: Vital Signs - 12hr 03/05/19 12:22 Temperature 98.2 F Pulse Rate 91 H Respiratory 16 Rate Blood Pressure 140/71 O2 Sat by Pulse 99 Oximetry General appearance: Present: no acute distress, well-nourished - EENT Eyes: PERRL, EOM intact, scleral icterus ENT: hearing intact, clear oral mucosa Ears: bilateral: normal - Neck Neck: supple, normal ROM - Respiratory Respiratory effort: normal Respiratory: bilateral: CTA - Breasts Breasts: normal - Cardiovascular Heart rate: 78 Rhythm: regular Heart Sounds: Present: S1 & S2. Absent: gallop, rub Extremities: pulses intact, No edema, normal color, Full ROM - Gastrointestinal General gastrointestinal: Present: soft, non-tender, non-distended, normal bowel sounds - Genitourinary Female genitourinary: normal - Integumentary Integumentary: clear, warm, dry - Musculoskeletal Musculoskeletal: 1, strength equal bilaterally - Neurologic Neurologic: moves all extremities - Psychiatric Psychiatric: memory intact, appropriate mood/affect, intact judgment & insight - Allied health notes Allied health notes reviewed: nursing, case management - Labs CBC & Chem 7: 03/07/19 09:05 03/06/19 08:40 Labs: Abnormal lab results 03/05/19 03/05/19 03/05/19 Range/Units 04:06 04:06 04:16 RDW 16.1 H (13.2-15.2) % [place] % (Auto) 7.7 H (0.0-7.3) % Seg Neutrophils % 73.7 H (40.0-70.0) % Creatinine 0.5 L (0.7-1.2) mg/dL Glucose 108 H (65-100) mg/dL Total Bilirubin 6.10 H (0.1-1.2) mg/dL Direct Bilirubin 5.3 H (0-0.2) mg/dL AST 48 H (5-40) units/L ALT 64 H (7-56) units/L Alkaline Phosphatase 793 H (35-129) units/L Albumin 3.3 L (3.9-5) g/dL Short CBC 03/07/19 Range/Units 09:05 WBC 8.7 (4.5-11.0) K/mm3 Hgb 11.0 (10.1-14.3) gm/dl Hct 33.0 (30.3-42.9) % Plt Count 348 (140-440) K/mm3 Liver Function 03/07/19 Range/Units 09:05 Total Bilirubin 5.80 H (0.1-1.2) mg/dL Direct Bilirubin 4.7 H (0-0.2) mg/dL AST 72 H (5-40) units/L ALT 74 H (7-56) units/L Alkaline Phosphatase 813 H (35-129) units/L Albumin 3.4 L (3.9-5) g/dL
[2019-03-05] MEDS ORDERED: SODIUM CHLORIDE 0.9% 100 ML ONE (17:29)
[2019-03-05] MEDS ORDERED: SODIUM CHLORIDE 0.9% 1000 ML 1,000 ML ONE (17:29)
--- NOTE | 2019-03-05 17:37 | Anesthesia Day of Surgery ---
Anesthesia Day of Surgery - Day of Surgery Patient Examined: Yes Patient H&P Reviewed: Yes Patient is NPO: Yes
--- NOTE | 2019-03-05 17:37 | Anesthesia Consultation ---
Anesthesia Consult and Med Hx Date of service: 03/05/19 - Airway Anesthetic Teeth Evaluation: Poor ROM Head & Neck: Adequate Mental/Hyoid Distance: Adequate Mallampati Class: Class II Intubation Access Assessment: Good - Pulmonary Exam CTA: Yes - Cardiac Exam Cardiac Exam: RRR - Pre-Operative Health Status ASA Pre-Surgery Classification: ASA3 Proposed Anesthetic Plan: General, MAC - Pulmonary Hx Asthma: No COPD: No Hx Pneumonia: No - Cardiovascular System Hx Hypertension: Yes - Endocrine Hx End Stage Renal Disease: No - Other Systems Hx Cancer: Yes
--- NOTE | 2019-03-05 18:33 | Post Operative Note ---
Pre-op diagnosis: biliary obstruction Post-op diagnosis: same Findings: ERCP: nl pancreatogram - 2 1/2 cm proximal common hepatic stricture w/ dilated proximal biliary tree - sphinterotomy - brushing stricture - 10F 9 cm stent placed Procedure: ERCP w/ stent placement Anesthesia: MAC Surgeon: NAIMA BUTTS Estimated blood loss: none Pathology: list Specimen disposition: to lab Condition: stable Disposition: floor
--- NOTE | 2019-03-05 19:19 | Fluoroscopy Report ---
ERCP Indication: Biliary obstruction Impression: 16 images of the right upper quadrant were submitted for ERCP. Pancreatic duct was erik ulated and injected and appears unremarkable. Biliary duct was cannulated and injected. There is a s tricture of the left intrahepatic bile duct with moderate biliary ductal dilatation involving the lef t hepatic lobe. A guidewire was then placed in the left lobe of the liver and biliary stent was place d. Fluoroscopy time 3.1 minutes 16 fluoroscopic images Signer Name: Eric Singh MD Signed: 03/05/2019 7:14 PM Workstation Name: [id number]
--- NOTE | 2019-03-05 22:03 | Operative Report ---
ERCP WITH SPHINCTEROTOMY, BRUSHINGS AND STENT PLACEMENT INDICATIONS: 1. Biliary obstruction. 2. Jaundice. 3. Increased liver function test. MEDICATIONS: Propofol per OLIVE BRINE TESTER. COMPLICATIONS: None. DESCRIPTION OF PROCEDURE: The patient brought to procedure suite. The patient had the procedure discussed with her at length. All risks, complications, and benefits discussed after which the patient signed for the procedure to be performed. The patient was placed in left lateral decubitus position. Mouth block was placed in the patient's oral cavity. After adequate sedation medication as above, ERCP scope placed in mouth and brought to level of the second portion of the duodenum. No retroflexion view was performed. The patient's vital signs remained stable throughout the procedure. FINDINGS: The esophagus and the stomach appeared grossly normal. In the second portion of duodenum, there was noted to be a normal appearing ampulla. Sphincterotome was then inserted. Pancreatogram showed a normal appearing pancreatogram. With the aid of a guidewire, cholangiogram was performed. Cholangiogram showed approximately 2.5 cm proximal common hepatic stricture with dilated proximal biliary tree and a fairly thin distal biliary tree. A medium sized sphincterotomy was then performed. A brush was then used to brush the strictured area and sent for cytology. A 10-Thai 9 cm stent was then placed with seemingly good placement across the strictured area noted above. Post-procedure appearance was satisfactory. The patient tolerated the procedure well. No complications during the procedure. IMPRESSION: 1. Normal-appearing esophagus and stomach. 2. Normal appearing ampulla. 3. Normal pancreatogram. 4. Cholangiogram with noted common hepatic stricture and dilated proximal biliary tree. 5. Sphincterotomy performed. 6. Brushings of the strictured area performed. 7. Stent placed as noted above. RECOMMENDATIONS: 1. Follow up cytology. 2. Follow liver function tests. 3. Advance diet as tolerated. 4. Further recommendation based on progress. JOB# [id number] CAB/NTS
[2019-03-05] MEDS: ACETAMINOPHEN 325 MG TAB PO PRN (22:42)
[2019-03-05] MEDS ORDERED: diphenhydrAMINE 25 MG CAP PO PRN (22:48)
[2019-03-06] MEDS: MORPHINE 2 MG/1 ML INJ IV PRN ×3 (01:47→11:44)
[2019-03-06] MEDS: SODIUM CHLORIDE 0.9% 1000 ML 1,000 ML IV SCH ×3 (06:04→22:36)
[2019-03-06] MEDS: ACETAMINOPHEN 325 MG TAB PO PRN (09:01)
[2019-03-06] MEDS: cefTRIAXone/NS 1 GM/50 ML 1 GM/50 ML BAG IV SCH (09:02)
[2019-03-06 09:24] LABS: Basophils # (Auto) 0.1 K/mm3 (0.0-0.1); Basophils % (Auto) 0.7 % (0.0-1.8); Eosinophils # (Auto) 0.1 K/mm3 (0.0-0.4); Eosinophils % (Auto) 1.6 % (0.0-4.3); Hematocrit 31.7 % (30.3-42.9); Hemoglobin 10.6 gm/dl (10.1-14.3); Lymphocytes # (Auto) 1.2 K/mm3 (1.2-5.4); Lymphocytes % (Auto) 13.6 % (13.4-35.0); Mean Corpuscular HGB Conc 33 % (30-34); Mean Corpuscular Volume 85 fl (79-97); Monocytes # (Auto) 0.5 K/mm3 (0.0-0.8); Monocytes % (Auto) 5.9 % (0.0-7.3); Platelet Count 325 K/mm3 (140-440); Red Blood Count 3.75 M/mm3 (3.65-5.03); Red Cell Distribution Width 16.2 % (13.2-15.2)
[2019-03-06 09:34] LABS: Alanine Aminotransferase 59 units/L (7-56); Albumin 3.2 g/dL (3.9-5); BUN/Creatinine Ratio 20; Blood Urea Nitrogen 6 mg/dL (7-17); Calcium 9.2 mg/dL (8.4-10.2); Hemolysis Index 4
--- NOTE | 2019-03-06 09:53 | Gastroenterology Progress Note ---
Assessment and Plan 1.elevated LFTs 2.abnormal CT (cholangiocarcinoma?) 4.cervical malignancy 5.UTI -afebrile -WBC and H/H WNL -INR 1.05 -lipase WNL -LFTs-stable -tumor markers pending -abd CT showed HALL SUPERVISOR malignancy likely cervical in origin with metastatic disease, along with 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 -MR/MRCP showed stable biliary obstruction (HALL SUPERVISOR mets vs cholangiocarcinoma) and stable retroperitoneal lymphadenopathy c/w metastatic disease -s/p ERCP with stent placement yesterday that showed: - nl pancreatogram - 2 1/2 cm proximal common hepatic stricture w/ dilated proximal biliary tree - sphinterotomy - brushing stricture - 10F 9 cm stent placed -clinically, patient reports feeling better with abd pain improving. No N/V. Tolerating diet. -continue antibiotics -f/u brushing results -awaiting oncology recommended for further treatment options- may need to follow up with hepatobiliary surgeon at tertiary center based on recommendations -continue to trend labs and supportive care -will follow Subjective Date of service: 03/06/19 Principal diagnosis: cholangiocarcinoma Interval history: No acute distress. Reports feeling better this am with abd pain improved. No N/V. Tolerating diet. Objective - Constitutional Vitals: Temp Pulse Resp BP Pulse Ox 98.1 F 83 20 132/70 96 03/06/19 04:43 03/06/19 04:43 03/06/19 09:01 03/06/19 04:43 03/06/19 04:43 General appearance: no acute distress - EENT Eyes: PERRL, EOM intact ENT: hearing intact - Respiratory Respiratory effort: normal - Cardiovascular Rhythm: regular - Gastrointestinal General gastrointestinal: Present: soft, tender (slightly), non-distended, normal bowel sounds - Neurologic Neurological: alert and oriented x3 - Labs CBC & Chem 7: 03/06/19 08:40 03/06/19 08:40 Labs: Laboratory Results - last 24 hr 03/06/19 03/06/19 08:40 08:40 WBC 8.8 RBC 3.75 Hgb 10.6 Hct 31.7 MCV 85 MCH 28 MCHC 33 RDW 16.2 H Plt Count 325 Lymph % (Auto) 13.6 [place] % (Auto) 5.9 Eos % (Auto) 1.6 Baso % (Auto) 0.7 Lymph # 1.2 [place]dwell # 0.5 Eos # 0.1 Baso # 0.1 Seg Neutrophils % 78.2 H Seg Neutrophils # 6.9 Sodium 139 Potassium 3.6 Chloride 102.2 Carbon Dioxide 22 Anion Gap 18 BUN 6 L Creatinine 0.3 L Estimated GFR > 60 BUN/Creatinine Ratio 20 Glucose 170 H Calcium 9.2 Total Bilirubin 6.60 H AST 48 H ALT 59 H Alkaline Phosphatase 750 H Total Protein 7.3 Albumin 3.2 L Albumin/Globulin Ratio 0.8 Lipase 25
--- NOTE | 2019-03-06 16:41 | Progress Note ---
Assessment and Plan (1) Bile duct obstruction Current Visit: Yes Status: Acute Plan to address problem: Secondary to metastatic disease. We await further evaluation and recommendation from black top machine operator. (2) Cholangiocarcinoma Current Visit: Yes Status: Acute Plan to address problem: Patient also has ductal obstruction. Will await further evaluation by raul roenterologist. (3) Elevated LFTs Current Visit: Yes Status: Acute Plan to address problem: We will monitor LFTs. (4) Cervical malignancy Current Visit: Yes Status: Acute Qualifiers: Malignant neoplasm of cervix location: unspecified location Qualified Code(s): C53.9 - Malignant neoplasm of cervix uteri, unspecified Plan to address problem: Patient has had chemotherapy and radiation in the past. Follows up with her private physician. (5) UTI (urinary tract infection) Current Visit: Yes Status: Acute Qualifiers: Urinary tract infection type: acute cystitis Hematuria presence: with hematuria Qualified Code(s): N30.01 - Acute cystitis with hematuria Plan to address problem: She is placed on empiric IV antibiotics. (6)SIRS with organ Dysfunction IV antibiotics.gor now UTI high wbc and Elevated LFT's (7) DVT prophylaxis Current Visit: Yes Status: Acute Plan to address problem: Patient meanwhile placed on sequential compression device as patient may be may be going for some surgical procedures this a.m. (8) Full code status Current Visit: Yes Status: Acute Subjective Date of service: 03/06/19 Principal diagnosis: cholangiocarcinoma Interval history: 58-year-old -[place] female presenting to the emergency room today complaining of lower abdominal pain and back pain over the past one week. She was diagnosed with a urinary tract infection about 3 weeks ago and she indicates that she took antibiotics she indicates that she has been having dysuria and urinary frequency lately. She denies any fever but she has been having some chills and also had some nausea. She has known history of cervical cancer diagnosed in 2017 and has had radiation chemotherapy in the past. He has also noticed some yellowness of her eyes lately. She has also been more constipated lately. Work-up in the emergency room today including CT of the abdomen reveals 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. Is also gynecological malignancy which is likely cervical in origin with involvement of the left ovary, there is also metastatic disease seen to the anterior pelvis and retroperitoneal nodes. Gastroenterologists has been consulted regarding the abnormal liver function test and biliary ductal obstruction. Patient will be kept n.p.o. for further evaluation in the a.m. She is also started on empiric IV antibiotics for UTI Objective - Constitutional Vitals: Vital Signs - 12hr 03/06/19 03/06/19 03/06/19 04:43 05:57 09:01 Temperature 98.1 F Pulse Rate 83 Respiratory 16 20 20 Rate Blood Pressure 132/70 O2 Sat by Pulse 96 Oximetry 03/06/19 03/06/19 11:44 11:55 Temperature 98.2 F Pulse Rate 85 Respiratory 20 20 Rate Blood Pressure 139/68 O2 Sat by Pulse 95 Oximetry General appearance: Present: no acute distress, well-nourished - EENT Eyes: PERRL, EOM intact, scleral icterus ENT: hearing intact, clear oral mucosa Ears: bilateral: normal - Neck Neck: supple, normal ROM - Respiratory Respiratory effort: normal Respiratory: bilateral: CTA - Breasts Breasts: normal - Cardiovascular Heart rate: 78 Rhythm: regular Heart Sounds: Present: S1 & S2. Absent: gallop, rub Extremities: pulses intact, No edema, normal color, Full ROM - Gastrointestinal General gastrointestinal: Present: soft, non-tender, non-distended, normal bowel sounds Rectal Exam: deferred - Genitourinary Female genitourinary: normal - Integumentary Integumentary: clear, warm, dry - Musculoskeletal Musculoskeletal: 1, strength equal bilaterally - Neurologic Neurologic: moves all extremities - Psychiatric Psychiatric: memory intact, appropriate mood/affect, intact judgment & insight - Labs CBC & Chem 7: 03/07/19 09:05 03/06/19 08:40 Labs: Abnormal lab results 03/06/19 03/06/19 Range/Units 08:40 08:40 RDW 16.2 H (13.2-15.2) % Seg Neutrophils % 78.2 H (40.0-70.0) % BUN 6 L (7-17) mg/dL Creatinine 0.3 L (0.7-1.2) mg/dL Glucose 170 H (65-100) mg/dL Total Bilirubin 6.60 H (0.1-1.2) mg/dL AST 48 H (5-40) units/L ALT 59 H (7-56) units/L Alkaline Phosphatase 750 H (35-129) units/L Albumin 3.2 L (3.9-5) g/dL
[2019-03-06] MEDS: HYDROmorphone 1 MG/1 ML INJ IV PRN ×2 (17:34→22:31)
[2019-03-07] MEDS: HYDROmorphone 1 MG/1 ML INJ IV PRN ×2 (03:37→12:41)
[2019-03-07] MEDS: SODIUM CHLORIDE 0.9% 1000 ML 1,000 ML IV SCH (07:41)
--- NOTE | 2019-03-07 07:53 | Event Note ---
Date: 03/07/19 [id number]
[2019-03-07 10:10] LABS: INR 0.98 (0.87-1.13)
[2019-03-07 10:19] LABS: Albumin 3.4 g/dL (3.9-5); Bilirubin,Direct 4.7 mg/dL (0-0.2); Mean Corpuscular HGB Conc 33 % (30-34); Mean Corpuscular Volume 83 fl (79-97); Platelet Count 348 K/mm3 (140-440); Red Blood Count 3.98 M/mm3 (3.65-5.03); Red Cell Distribution Width 16.4 % (13.2-15.2)
[2019-03-07] MEDS: cefTRIAXone/NS 1 GM/50 ML 1 GM/50 ML BAG IV SCH (10:25)
--- NOTE | 2019-03-07 11:01 | Gastroenterology Progress Note ---
<VALERIA SHEFFIELD - Last Filed: 03/07/19 11:02> Assessment and Plan 1.elevated LFTs 2.abnormal CT (cholangiocarcinoma?) 4.cervical malignancy 5.UTI -WBC and H/H WNL -INR WNL -lipase WNL -LFTs-stable -tumor markers pending -abd CT showed KILN CHARGER malignancy likely cervical in origin with metastatic disease, along with 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 -MR/MRCP showed stable biliary obstruction (KILN CHARGER mets vs cholangiocarcinoma) and stable retroperitoneal lymphadenopathy c/w metastatic disease -s/p ERCP with stent placement yesterday that showed: - nl pancreatogram - 2 1/2 cm proximal common hepatic stricture w/ dilated proximal biliary tree - sphinterotomy - brushing stricture - 10F 9 cm stent placed -clinically, patient is stable. Reports continued lower abd pain. No N/V. Tolerating diet. -continue antibiotics -brushing results pending- f/u in clinic -will defer further treatment options to oncology- may need to follow up with hepatobiliary surgeon at tertiary center based on recommendations -continue to trend labs and supportive care -patient okay to be d/c per GI standpoint with f/u in clinic in ~2 weeks (may need repeat ERCP for stent removal/exchange as outpatient in 2-3 months) Subjective Date of service: 03/07/19 Principal diagnosis: biliary obstruction Interval history: No acute distress. Reports continue lower abd pain. No N/V. Tolerating diet. Objective - Constitutional Vitals: Temp Pulse Resp BP Pulse Ox 99.1 F 85 18 152/79 98 03/07/19 06:33 03/07/19 06:33 03/07/19 06:33 03/07/19 06:33 03/07/19 06:33 General appearance: no acute distress - EENT Eyes: PERRL, EOM intact ENT: hearing intact - Respiratory Respiratory effort: normal - Cardiovascular Rhythm: regular - Gastrointestinal General gastrointestinal: Present: soft, tender (slight TTP in lower abdomen), non-distended, normal bowel sounds - Integumentary Integumentary: Present: warm, dry - Neurologic Neurological: alert and oriented x3 - Labs CBC & Chem 7: 03/07/19 09:05 03/06/19 08:40 Labs: Laboratory Results - last 24 hr 03/07/19 03/07/19 03/07/19 09:05 09:05 09:05 WBC 8.7 RBC 3.98 Hgb 11.0 Hct 33.0 MCV 83 MCH 28 MCHC 33 RDW 16.4 H Plt Count 348 Lymph % (Auto) Electrical Sign Servicer Page % (Auto) Electrical Sign Servicer Eos % (Auto) Electrical Sign Servicer Baso % (Auto) Electrical Sign Servicer Lymph # Electrical Sign Servicer Page # Electrical Sign Servicer Eos # Electrical Sign Servicer Baso # Electrical Sign Servicer Seg Neutrophils % Electrical Sign Servicer Seg Neutrophils # Electrical Sign Servicer PT 12.9 INR 0.98 Total Bilirubin 5.80 H Direct Bilirubin 4.7 H Indirect Bilirubin 1.1 AST 72 H ALT 74 H Alkaline Phosphatase 813 H Total Protein 6.8 Albumin 3.4 L Albumin/Globulin Ratio 1.0 <MADELIN LOVETT - Last Filed: 03/07/19 17:25> Assessment and Plan Pt seen and examined; agree with note above. denies abd pain and tolerating po. f/u in GI clinic in 2-3 weeks and with oncologist as outpatient. brushings from ercp pending Objective - Constitutional Vitals: Temp Pulse Resp BP Pulse Ox 97.5 F L 88 22 162/88 96 03/07/19 12:56 03/07/19 12:56 03/07/19 12:56 03/07/19 12:56 03/07/19 12:56 - Labs CBC & Chem 7: 03/07/19 09:05 03/06/19 08:40 Labs: Laboratory Results - last 24 hr 03/07/19 03/07/19 03/07/19 09:05 09:05 09:05 WBC 8.7 RBC 3.98 Hgb 11.0 Hct 33.0 MCV 83 MCH 28 MCHC 33 RDW 16.4 H Plt Count 348 Lymph % (Auto) Electrical Sign Servicer Page % (Auto) Electrical Sign Servicer Eos % (Auto) Electrical Sign Servicer Baso % (Auto) Electrical Sign Servicer Lymph # Electrical Sign Servicer Page # Electrical Sign Servicer Eos # Electrical Sign Servicer Baso # Electrical Sign Servicer Seg Neutrophils % Electrical Sign Servicer Seg Neutrophils # Electrical Sign Servicer PT 12.9 INR 0.98 Total Bilirubin 5.80 H Direct Bilirubin 4.7 H Indirect Bilirubin 1.1 AST 72 H ALT 74 H Alkaline Phosphatase 813 H Total Protein 6.8 Albumin 3.4 L Albumin/Globulin Ratio 1.0
--- NOTE | 2019-03-07 16:56 | Discharge Summary ---
Providers - Providers Date of Admission: 03/04/19 00:59 Date of discharge: 03/07/19 Attending physician: BRIGETTE PRATT 03/04/19 00:02 Consult to Physician [CONS] Stat Comment: Consulting Provider: ANDREW ANGLIN Physician Instructions: Reason For Exam: suspected cholangiocarcinoma ductal obstruction 03/04/19 00:24 Consult to Physician [CONS] Routine Comment: Consulting Provider: YULIANA GRIMES Physician Instructions: Reason For Exam: ASSISTANT MERCHANDISE MANAGER malignancy 03/06/19 10:02 Consult to Physician [CONS] Routine Comment: Consulting Provider: ELLIOTT FRANCOIS Physician Instructions: consult oncology Reason For Exam: metastatic disease Primary care physician: PATENT PROSECUTION PARALEGAL Hospitalization Condition: Stable Hospital course: 58-year-old -[place] female presenting to the emergency room today complaining of lower abdominal pain and back pain over the past one week. She was diagnosed with a urinary tract infection about 3 weeks ago and she indicates that she took antibiotics she indicates that she has been having dysuria and urinary frequency lately. She denies any fever but she has been having some chills and also had some nausea. She has known history of cervical cancer diagnosed in 2017 and has had radiation chemotherapy in the past. He has also noticed some yellowness of her eyes lately. She has also been more constipated lately. Work-up in the emergency room today including CT of the abdomen reveals 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. Is also gynecological malignancy which is likely cervical in origin with involvement of the left ovary, there is also metastatic disease seen to the anterior pelvis and retroperitoneal nodes. Gastroenterologists has been consulted regarding the abnormal liver function test and biliary ductal obstruction. ERCP done GI and oncology consults appreciated (1) Bile duct obstruction Current Visit: Yes Status: Acute Plan to address problem: Secondary to metastatic disease. 1.elevated LFTs 2.abnormal CT (cholangiocarcinoma?) -WBC and H/H WNL -INR WNL -lipase WNL -LFTs-stable -tumor markers pending -abd CT showed ASSISTANT MERCHANDISE MANAGER malignancy likely cervical in origin with metastatic disease, along with 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 -MR/MRCP showed stable biliary obstruction (ASSISTANT MERCHANDISE MANAGER mets vs cholangiocarcinoma) and stable retroperitoneal lymphadenopathy c/w metastatic disease -s/p ERCP with stent placement yesterday that showed: - nl pancreatogram - 2 1/2 cm proximal common hepatic stricture w/ dilated proximal biliary tree - sphinterotomy - brushing stricture - 10F 9 cm stent placed -clinically, patient is stable. Reports continued lower abd pain. No N/V. Tolerating diet. -continue antibiotics -brushing results pending- f/u in clinic -will defer further treatment options to oncology- may need to follow up with hepatobiliary surgeon at tertiary center based on recommendations -continue to trend labs and supportive care -F/u in GI clinic in ~2 weeks (may need repeat ERCP for stent removal/exchange as outpatient in 2-3 months) (2) Cholangiocarcinoma Current Visit: Yes Status: Acute Plan to address problem: Patient also has ductal obstruction. Need f/u with oncology Dr Francois (3) Elevated LFTs Current Visit: Yes Status: Acute Plan to address problem: LFT--trending down (4) Cervical malignancy Current Visit: Yes Status: Acute Qualifiers: Malignant neoplasm of cervix location: unspecified location Qualified Code(s): C53.9 - Malignant neoplasm of cervix uteri, unspecified Plan to address problem: Patient has had chemotherapy and radiation in the past. Follows up with her private physician. (5) UTI (urinary tract infection) Current Visit: Yes Status: Acute Qualifiers: Urinary tract infection type: acute cystitis Hematuria presence: with hematuria Qualified Code(s): N30.01 - Acute cystitis with hematuria Plan to address problem: She is placed on empiric IV antibiotics. (6)SIRS with organ Dysfunction IV antibiotics.for now UTI high wbc and Elevated LFT's (7) DVT prophylaxis Current Visit: Yes Status: Acute Plan to address problem: Patient meanwhile placed on sequential compression device as patient may be may be going for some surgical procedures this a.m. (8) Full code status Current Visit: Yes Status: Acute Disposition: DC-01 TO HOME OR SELFCARE Core Measure Documentation - Palliative Care Palliative Care/ Comfort Measures: Not Applicable - Core Measures Any of the following diagnoses?: none Exam - Constitutional Vitals: Temp Pulse Resp BP Pulse Ox 97.5 F L 88 22 162/88 96 03/07/19 12:56 03/07/19 12:56 03/07/19 12:56 03/07/19 12:56 03/07/19 12:56 General appearance: Present: no acute distress, well-nourished - EENT Eyes: Present: PERRL, scleral icterus ENT: hearing intact, clear oral mucosa - Neck Neck: Present: supple, normal ROM - Respiratory Respiratory effort: normal Respiratory: bilateral: CTA - Cardiovascular Heart rate: 78 Rhythm: regular Heart Sounds: Present: S1 & S2. Absent: rub, click - Extremities Extremities: no ischemia, pulses intact, pulses symmetrical, No edema Peripheral Pulses: within normal limits - Abdominal General gastrointestinal: Present: soft, non-tender, non-distended, normal bowel sounds Female genitourinary: Present: normal - Integumentary Integumentary: Present: clear, warm, dry - Musculoskeletal Musculoskeletal: gait normal, strength equal bilaterally - Psychiatric Psychiatric: appropriate mood/affect, intact judgment & insight - Neurologic Neurologic: CNII-XII intact, moves all extremities - Allied Health Allied health notes reviewed: nursing, case management Plan Activity: no restrictions Diet: low fat, low cholesterol, low salt Follow up with: PRIMARY CARE, [Primary Care Provider] - 3-5 Days MADELIN LOVETT MD [Staff Physician] - 7 Days ELLIOTT FRANCOIS MD [Staff Physician] - 7 Days
[2019-03-07 18:22] VITALS: BP 174/98
--- NOTE | 2019-03-08 07:46 | Consultation ---
REFERRED BY: Dr. Shabazz. REASON FOR CONSULTATION: History of cervical cancer with mets. HISTORY OF PRESENT ILLNESS: I saw the patient, a 58-year-old female in the medical floor. The patient came to the hospital on . She has a history of cervical cancer, has been following with [facility]. She says she follows a physician a few weeks ago. Her cervical cancer was diagnosed in November 2016. She has had radiation therapy in the past. She came to the hospital because of lower abdominal pain, back pain for 1 week. She also noticed yellowness of her eyes. During this admission, radiology showed a possible cholangiocarcinoma and possible mets in the anterior pelvis and retroperitoneal nodes. GI consultation and Oncology consultation has been done. The patient says she wants to go back to [facility]. At this time, no headache, no visual disturbances. No ear discharge. Has yellowness of eyes. No chest pain. Has abdominal pain. No hematemesis, no hematochezia. PAST MEDICAL HISTORY: Include hypertension, GERD, cervical cancer, status post chemoradiation. ALLERGIES: None. HOME MEDICATIONS: Included Percocet. FAMILY HISTORY: Noncontributory. PHYSICAL EXAMINATION: VITAL SIGNS: Temperature 99, pulse 85, respirations 18, BP 152/79. HEENT: Icterus present. NECK: No neck lymph nodes. HEART: S1, S2. LUNGS: Clear to auscultation. ABDOMEN: Soft, no guarding. EXTREMITIES: No calf tenderness. NEUROLOGIC: Alert, awake, oriented. LABORATORY DATA: White cell 8.7, hemoglobin 11, MCV 83, platelet 348. Potassium 3.6, creatinine 0.3, bilirubin 6.6, AST 48, alkaline phosphatase 750. CA 19-9 131. RADIOLOGY: Shows TECHNOLOGY ADVISOR malignancy, likely cervical in origin with involvement of left ovary, suspected cholangiocarcinoma then also seen metastatic disease to the anterior pelvis and retroperitoneal lymph nodes. ASSESSMENT: History of cervical cancer. Radiologically, this appears to be . There is also obstructive jaundice suspected to be a cholangiocarcinoma radiologically; however, this also could be mets. The patient wants to go back to [facility] for followup. History of elevated LFTs. Hypertension. Gastroesophageal reflux disease. I discussed with Dr. Shabazz outpatient followup with [facility] is being planned. JOB# [id number] NM/NTS
== END 2019-03-07 18:30 | disposition home or self-care (01) | DRG 435 ==
LOC: ED 20:25 → 3A 03-04 00:59
PROVIDERS: ADMIT Internal Medicine Geriatric Medicine; ATTEND Internal Medicine
PROC: 0F778DZ Dilation of Common Hepatic Duct with Intraluminal Device, Via Natural or Artificial Opening Endoscopic (ICD-10-PCS; principal; 2019-03-05)
PROC: BF141ZZ Fluoroscopy of Gallbladder, Bile Ducts and Pancreatic Ducts using Low Osmolar Contrast (ICD-10-PCS; 2019-03-05)
DX: C22.1 Intrahepatic bile duct carcinoma (principal); K83.1 Obstruction of bile duct; R65.11 Systemic inflammatory response syndrome (SIRS) of non-infectious origin with acute organ dysfunction; C79.9 Secondary malignant neoplasm of unspecified site; C53.9 Malignant neoplasm of cervix uteri, unspecified; N30.01 Acute cystitis with hematuria; I10 Essential (primary) hypertension; K21.9 Gastro-esophageal reflux disease without esophagitis; F17.200 Nicotine dependence, unspecified, uncomplicated; Z79.899 Other long term (current) drug therapy; Z83.3 Family history of diabetes mellitus; Z80.9 Family history of malignant neoplasm, unspecified
CPT/HCPCS: 36415; 74177; 74181; 74330; 80048; 80053; 80074; 80076; 81001; 82378; 83690; 85025; 85610; 85730; 86301; 86304; 87086; G0378; C1726; J0696; J1170; J2270; J2405; J2704; J3010; J7030; Q9967